=== PATIENT | male | born 1960 | race African-American/Black ===

== ENCOUNTER 2017-03-30 22:23 | Inpatient (IN) | payer SELFPAY ==
[~2017-03-30] VITALS: Ht 172.7 cm; Wt 99.4 kg
[2017-03-30] MEDS ORDERED: HYDROCODONE/ACETAMINOPHEN 5/325MG TABLET PO STA (23:19)
[2017-03-30] MEDS ORDERED: SODIUM CHLORIDE 0.9% 1,000 ML IV ONE (23:19)
[2017-03-30] MEDS ORDERED: INSULIN REGULAR (HUMULIN R) 300UNITS/3ML IV ONE (23:30)
[2017-03-30] MEDS ORDERED: ASPIRIN 81MG TABLET PO ONE (23:30)
[2017-03-30] MEDS ORDERED: NITROGLYCERIN OINT 1GM/INCH UDPKT TD ONE (23:30)
[2017-03-31] VITALS (7 sets, daily range): BP systolic 120–138; BP diastolic 70–86
[2017-03-31 00:05] LABS: CLARITY URINE CLEAR (CLEAR); COLOR URINE YELLOW (YELLOW); GLUCOSE URINE 3+ (NEGATIVE); KETONES URINE NEGATIVE (NEGATIVE); LEUKOCYTE ESTERASE URINE NEGATIVE (NEGATIVE); NITRITE URINE NEGATIVE (NEGATIVE); OCCULT BLOOD URINE NEGATIVE (NEGATIVE); PROTEIN URINE NEGATIVE (NEGATIVE); SPECIFIC GRAVITY URINE 1.037 (1.005-1.030)
[2017-03-31 00:05] LABS: BASOPHILS % 0.7 % (0.0-2.0); EOSINOPHILS % 0.8 % (0.0-5.0); HEMATOCRIT. 36.2 % (42.0-52.0); HEMOGLOBIN. 12.3 g/dL (14.0-18.0); LYMPHOCYTES % 26.9 % (20.0-50.0); MEAN CORPUSCULAR HEMOGLOBIN 26.3 pg (28.0-32.0); MEAN CORPUSCULAR VOLUME 77.4 fL (80.0-94.0); MEAN PLATELET VOLUME 8.6 fl (7.4-10.4); NEUTROPHILS % 65.6 % (40.0-76.0); PLATELET 274 x1000/uL (130-400); RED BLOOD CELL COUNT 4.68 mill/uL (4.7-6.1); RED CELL DISTRIBUTION WIDTH 13.4 % (11.6-14.6)
[2017-03-31 00:15] LABS: D-DIMER 0.23 mg/L FEU (<0.50); INR 1.1; PROTHROMBIN TIME 10.9 sec
[2017-03-31 00:18] LABS: *AMPHETAMINES SCREEN URINE NEGATIVE (NEGATIVE); *BARBITURATES SCREEN URINE NEGATIVE (NEGATIVE); *BENZODIAZEPINES SCREEN URINE NEGATIVE (NEGATIVE); *COCAINE SCREEN URINE NEGATIVE (NEGATIVE); CANNABINOID URINE SCREEN NEGATIVE (NEGATIVE); METHADONE URINE SCREEN NEGATIVE (NEGATIVE); OPIATES URINE SCREEN NEGATIVE (NEGATIVE); PHENCYCLIDINE URINE SCREEN NEGATIVE (NEGATIVE)
[2017-03-31 00:20] LABS: CARBON DIOXIDE 26 mEq/L (21-32); CHLORIDE 96 mEq/L (98-107); ETHANOL BLOOD < 10 mg/dL; TROPONIN I 0.03 ng/mL (0.00-0.04)
[2017-03-31 00:22] LABS: BETA HYDROXYBUTYRATE 0.1 mMol/L (0.0-0.3)
[2017-03-31] MEDS ORDERED: INSULIN REGULAR HUMAN 100 UNITS/ML 10ML VIAL IV ONE ×2 (03:00→05:00)
[2017-03-31] MEDS ORDERED: INSULIN REGULAR (HUMULIN R) 300UNITS/3ML IV NR ×2 (03:15→05:00)
[2017-03-31] MEDS ORDERED: CLOPIDOGREL 75MG TABLET PO NR (04:30)
[2017-03-31] MEDS ORDERED: GLIP10TA10 PO (09:20)
[2017-03-31] MEDS ORDERED: METF10002 PO (09:20)
[2017-03-31] MEDS ORDERED: PRAV10TA35 PO (09:22)
[2017-03-31] MEDS ORDERED: LISI10TA5 PO (09:22)
[2017-03-31] MEDS ORDERED: ACETAMINOPHEN 325MG TABLET PO PRN (12:30)
[2017-03-31] MEDS ORDERED: ONDANSETRON HCL 4MG/2ML VIAL IV PRN (12:30)
[2017-03-31] MEDS ORDERED: GUAIFENESIN 200MG/10ML SUGAR FREE UDC PO PRN (12:30)
[2017-03-31] MEDS ORDERED: CLONIDINE 0.1MG TABLET PO PRN (12:30)
[2017-03-31] MEDS ORDERED: HYDROCODONE/ACETAMINOPHEN 5/325MG TABLET PO PRN (12:30)
[2017-03-31] MEDS ORDERED: MAGNESIUM/ALUMINUM HYDROXIDE/SIMETHICONE 30ML UDC PO PRN (12:30)
[2017-03-31] MEDS ORDERED: ENOXAPARIN 40MG/0.4ML SYR SUBCUT SCH (13:00)
[2017-03-31] MEDS: METOPROLOL TARTRATE 25MG TABLET PO SCH ×2 (15:39→22:04)
[2017-03-31] MEDS: ASPIRIN 81MG EC TABLET PO SCH (15:39)
[2017-03-31] MEDS ORDERED: DEXTROSE 50% WATER 50ML SYRINGE IV PRN (15:45)
[2017-03-31] MEDS ORDERED: ENOXAPARIN 100MG/ML SYR SUBCUT SCH (15:45)
[2017-03-31] MEDS: BLOOD SUGAR DIAGNOSTIC STRIP TEST SCH ×2 (16:44→22:11)
[2017-03-31 16:50] LABS: TROPONIN I 8.8 ng/mL (0.00-0.04)
[2017-03-31] MEDS ORDERED: ENOXAPARIN 60MG/0.6ML SYR SUBCUT NR (17:00)
[2017-03-31] MEDS ORDERED: ASPIRIN 81MG TABLET PO NR (17:15)
[2017-03-31] MEDS: NITROGLYCERIN OINT 1GM/INCH UDPKT TD SCH (17:24)
[2017-03-31] MEDS: INSULIN LISPRO 100 UNITS/ML SUBCUT SCH ×2 (17:33→22:18)
[2017-03-31] MEDS ORDERED: ATORVASTATIN CALCIUM 10MG TABLET PO SCH (21:00)
[2017-04-01] VITALS (31 sets, daily range): BP systolic 93–145; BP diastolic 29–89
[2017-04-01] MEDS: NITROGLYCERIN OINT 1GM/INCH UDPKT TD SCH ×4 (00:27→17:37)
[2017-04-01] MEDS: BLOOD SUGAR DIAGNOSTIC STRIP TEST SCH ×4 (05:53→20:16)
[2017-04-01 06:01] LABS: BASOPHILS % 0.6 % (0.0-2.0); EOSINOPHILS % 1.1 % (0.0-5.0); HEMATOCRIT. 36.7 % (42.0-52.0); HEMOGLOBIN. 12.5 g/dL (14.0-18.0); LYMPHOCYTES % 33.1 % (20.0-50.0); MEAN CORPUSCULAR HEMOGLOBIN 26.3 pg (28.0-32.0); MEAN CORPUSCULAR VOLUME 77.2 fL (80.0-94.0); MEAN PLATELET VOLUME 8.5 fl (7.4-10.4); MONOCYTES % 6.6 % (2.0-8.0); NEUTROPHILS % 58.6 % (40.0-76.0); PLATELET 277 x1000/uL (130-400); RED BLOOD CELL COUNT 4.75 mill/uL (4.7-6.1); RED CELL DISTRIBUTION WIDTH 13.7 % (11.6-14.6)
[2017-04-01 06:53] LABS: CHLORIDE 101 mEq/L (98-107)
[2017-04-01] MEDS: INSULIN LISPRO 100 UNITS/ML SUBCUT SCH ×4 (07:20→20:19)
[2017-04-01 07:25] LABS: CARBON DIOXIDE 25 mEq/L (21-32); CREATINE KINASE 267 IU/L (39-308); CREATINE KINASE MB FRACTION 13.3 ng/mL (0.5-3.6); HDL CHOLESTEROL 26 mg/dL (40-59); LDL CHOLESTEROL 189 mg/dL (5-100)
[2017-04-01] MEDS: ASPIRIN 81MG EC TABLET PO SCH (07:56)
[2017-04-01] MEDS: METOPROLOL TARTRATE 25MG TABLET PO SCH ×2 (07:57→20:10)
[2017-04-01] MEDS: AMLODIPINE 2.5MG TABLET PO SCH (07:58)
[2017-04-01] MEDS: SODIUM CHLORIDE 0.9% 1,000 ML IV SCH ×2 (08:53→16:52)
[2017-04-01] MEDS ORDERED: KCL 10MEQ/50ML PREMIX 50 ML IV SCH (10:00)
[2017-04-01] MEDS ORDERED: IOHEXOL-300 100 ML BOTTLE ONE ×2 (12:45→13:37)
[2017-04-01] MEDS ORDERED: MIDAZOLAM HCL 2 MG/2 ML VIAL ONE (12:45)
[2017-04-01] MEDS ORDERED: FENTANYL CITRATE/PF 50MCG/ML 2ML VIAL ONE (12:45)
[2017-04-01] MEDS ORDERED: LIDOCAINE HCL 1% 20ML VIAL (Pyxis) INJ ONE (12:45)
[2017-04-01] MEDS ORDERED: NITROGLYCERIN 50MCG/ML 10ML VIAL (CATH LAB) IV ONE (13:05)
[2017-04-01] MEDS ORDERED: HEPARIN SODIUM 1,000 UNIT/1ML VIAL IV ONE (13:05)
[2017-04-01] MEDS ORDERED: NICARDIPINE 100MCG/ML 10ML VIAL (CATH LAB) IV ONE (13:05)
[2017-04-01] MEDS ORDERED: IOVERSOL 240MG/ML 100ML BOTTLE IV ONE (13:31)
[2017-04-01] MEDS ORDERED: ATROPINE SULFATE 0.1MG/ML 10ML DISP.SYRIN ONE (13:33)
[2017-04-01] MEDS ORDERED: ABCIXIMAB 10 MG/5 ML VIAL IV ONE (13:49)
[2017-04-01] MEDS ORDERED: ASPIRIN 325MG TABLET ONE (14:12)
[2017-04-01] MEDS ORDERED: CLOPIDOGREL 75MG TABLET ONE ×2 (14:12→14:13)
[2017-04-01] MEDS ORDERED: ATORVASTATIN CALCIUM 40MG TABLET PO SCH (21:00)
[2017-04-02] VITALS (7 sets, daily range): BP systolic 104–140; BP diastolic 57–73
[2017-04-02] MEDS: NITROGLYCERIN OINT 1GM/INCH UDPKT TD SCH ×2 (00:10→05:56)
[2017-04-02] MEDS: SODIUM CHLORIDE 0.9% 1,000 ML IV SCH (03:16)
[2017-04-02] MEDS: BLOOD SUGAR DIAGNOSTIC STRIP TEST SCH (05:58)
[2017-04-02 06:17] LABS: CARBON DIOXIDE 25 mEq/L (21-32); CHLORIDE 103 mEq/L (98-107)
[2017-04-02 06:48] LABS: BASOPHILS % 0.7 % (0.0-2.0); EOSINOPHILS % 1.2 % (0.0-5.0); HEMATOCRIT. 35.5 % (42.0-52.0); HEMOGLOBIN. 11.9 g/dL (14.0-18.0); LYMPHOCYTES % 32.4 % (20.0-50.0); MEAN CORPUSCULAR HEMOGLOBIN 26.2 pg (28.0-32.0); MEAN CORPUSCULAR VOLUME 78.2 fL (80.0-94.0); MEAN PLATELET VOLUME 8.5 fl (7.4-10.4); MONOCYTES % 6.6 % (2.0-8.0); NEUTROPHILS % 59.1 % (40.0-76.0); PLATELET 278 x1000/uL (130-400); RED BLOOD CELL COUNT 4.54 mill/uL (4.7-6.1); RED CELL DISTRIBUTION WIDTH 13.7 % (11.6-14.6)
[2017-04-02] MEDS: INSULIN LISPRO 100 UNITS/ML SUBCUT SCH (07:46)
[2017-04-02] MEDS: AMLODIPINE 2.5MG TABLET PO SCH (08:28)
[2017-04-02] MEDS: ASPIRIN 81MG EC TABLET PO SCH (08:28)
[2017-04-02] MEDS: METOPROLOL TARTRATE 25MG TABLET PO SCH (08:29)
[2017-04-02] MEDS ORDERED: CLOPIDOGREL 75MG TABLET PO SCH (09:00)
== END 2017-04-02 10:45 | disposition home or self-care (01) | DRG 174 ==
LOC: ER 22:34 → 5WST 03-31 01:00 → EDBEDREQTM 03-31 01:04 → EDBEDREQ 03-31 01:04 → 3WST 03-31 21:13
PROVIDERS: ADMIT Hospitalist; ATTEND Hospitalist
PROC: 02703EZ Dilation of Coronary Artery, One Artery with Two Intraluminal Devices, Percutaneous Approach (ICD-10-PCS; principal; 2017-04-01)
PROC: 4A023N7 Measurement of Cardiac Sampling and Pressure, Left Heart, Percutaneous Approach (ICD-10-PCS; 2017-04-01)
PROC: B2111ZZ Fluoroscopy of Multiple Coronary Arteries using Low Osmolar Contrast (ICD-10-PCS; 2017-04-01)
PROC: B2151ZZ Fluoroscopy of Left Heart using Low Osmolar Contrast (ICD-10-PCS; 2017-04-01)
DX: I21.4 Non-ST elevation (NSTEMI) myocardial infarction (principal); E11.65 Type 2 diabetes mellitus with hyperglycemia; I11.9 Hypertensive heart disease without heart failure; E78.00 Pure hypercholesterolemia, unspecified; E78.5 Hyperlipidemia, unspecified; E66.9 Obesity, unspecified; Z68.33 Body mass index [BMI] 33.0-33.9, adult; I25.2 Old myocardial infarction; Z82.49 Family history of ischemic heart disease and other diseases of the circulatory system; Z91.19 Patient's noncompliance with other medical treatment and regimen
CPT/HCPCS: 36415; 71010; 80048; 80053; 80061; 80305; 81001; 81003; 82010; 82550; 82553; 82962; 83690; 83880; 84484; 85025; 85347; 85379; 85610; 92928; 93005; 93306; 93458; 93970; 96361; 96374; 96376; 99285; C1725; C1769; C1887; C1893; G0482; J0130; J0461; J1644; J1650; J1815; J2250; J3010; J3480; J3490; J7030; Q9967

== ENCOUNTER 2017-04-10 07:46 | Emergency (ER) | payer SELFPAY ==
[~2017-04-10] VITALS: Ht 170.2 cm; Wt 100.0 kg
[~2017-04-10 07:46] MED LIST: GLIP10TA10 PO; LISI10TA5 PO; METF10002 PO
[2017-04-10 08:46] LABS: BASOPHILS % 0.9 % (0.0-2.0); HEMATOCRIT. 38.2 % (42.0-52.0); HEMOGLOBIN. 12.9 g/dL (14.0-18.0); LYMPHOCYTES % 18.9 % (20.0-50.0); MEAN CORPUSCULAR HEMOGLOBIN 26.1 pg (28.0-32.0); MEAN CORPUSCULAR VOLUME 77.6 fL (80.0-94.0); MEAN PLATELET VOLUME 7.4 fl (7.4-10.4); MONOCYTES % 6.2 % (2.0-8.0); PLATELET 377 x1000/uL (130-400); RED BLOOD CELL COUNT 4.93 mill/uL (4.7-6.1); RED CELL DISTRIBUTION WIDTH 13.9 % (11.6-14.6)
[2017-04-10 08:56] LABS: INR 1.1; PARTIAL THROMBOPLASTIN TIME 25.7 sec (24.0-34.0)
[2017-04-10 09:03] LABS: CARBON DIOXIDE 26 mEq/L (21-32); CHLORIDE 101 mEq/L (98-107); CREATINE KINASE 103 IU/L (39-308); TROPONIN I 0.04 ng/mL (0.00-0.04)
[2017-04-10 09:15] LABS: CLARITY URINE CLEAR (CLEAR); COLOR URINE YELLOW (YELLOW); GLUCOSE URINE NEGATIVE (NEGATIVE); KETONES URINE NEGATIVE (NEGATIVE); LEUKOCYTE ESTERASE URINE NEGATIVE (NEGATIVE); NITRITE URINE NEGATIVE (NEGATIVE); OCCULT BLOOD URINE NEGATIVE (NEGATIVE); PROTEIN URINE NEGATIVE (NEGATIVE)
[2017-04-10 10:45] VITALS: BP 131/76
== END 2017-04-10 11:13 | disposition home or self-care (01) ==
LOC: ER 08:20
DX: E11.649 Type 2 diabetes mellitus with hypoglycemia without coma (principal); R11.2 Nausea with vomiting, unspecified; I10 Essential (primary) hypertension; H53.8 Other visual disturbances; R19.7 Diarrhea, unspecified; E78.00 Pure hypercholesterolemia, unspecified; I51.9 Heart disease, unspecified; R79.1 Abnormal coagulation profile
CPT/HCPCS: 36415; 74022; 80053; 81003; 82550; 82553; 82962; 83690; 84484; 85025; 85610; 85730; 87086; 93005; 99285; Z7610

== ENCOUNTER 2017-09-26 16:39 | Emergency (ER) | payer MEDICAID ==
[~2017-09-26] VITALS: Ht 170.2 cm; Wt 99.0 kg
[2017-09-26 19:05] VITALS: BP 95/58
== END 2017-09-26 19:09 | disposition home or self-care (01) ==
LOC: ER 16:39
DX: R05 Cough (principal); I10 Essential (primary) hypertension; E78.00 Pure hypercholesterolemia, unspecified; E11.9 Type 2 diabetes mellitus without complications; I25.2 Old myocardial infarction
CPT/HCPCS: 99283